=== PATIENT | female | born 1945 | race Caucasian/White ===

== ENCOUNTER 2016-10-13 16:47 | Observation (INO) | payer MEDICARE ==
[2016-10-13] MEDS ORDERED: METOPROLOL TARTRATE 50 MG TAB PO ONE (17:07)
--- NOTE | 2016-10-13 17:34 | RAD ---
EXAM DESCRIPTION: Chest,2 Views CLINICAL HISTORY: 71 years Female, palpitations COMPARISON: December TECHNIQUE: PA/lateral] FINDINGS: A pacemaker with atrial and ventricular leads is seen in place. The heart is at the upper limits of normal in size. Lungs are free of acute infiltrate or evidence of effusion. IMPRESSION: I see no acute cardiopulmonary pathology or significant interval change. Electronically signed by: Dwight Calloway MD 10/13/2016 5:33 PM [employer]
--- NOTE | 2016-10-13 18:43 | ED.PDOC ---
History of Present Illness - General Chief Complaint: Cardiovascular Problem Stated Complaint: fast heart rate Time Seen by Provider: 10/13/16 17:05 Source: patient Exam Limitations: no limitations - History of Present Illness Initial Comments: the patient is a 71-year-old female presenting to the emergency room secondary to a feeling of palpitations in her chest that started less than an hour prior to arrival. She had actually gone to get her pacemaker interrogated today and it was apparently doing what he was supposed to be doing. She had been taken off of a long-acting metoprolol [address] Fulton earlier in the month. The patient has apparently been stable on that medication for quite a few years. She did have a history of atrial fibrillation with rapid ventricular rate but she says that she has been in a normal rhythm for the last few years. She does take liquids daily. She did not have any chest pain with the event but did have some mild shortness of breath. Her heart rate upon arrival here was in the 140s to 150s. She is oxygenating well without any chest pain. Lungs are clear. No respiratory distress. Telemetry monitoring and EKG confirmed atrial flutter with variable conduction. Timing/Duration: 1 hour Severity: moderate Improving Factors: nothing Worsening Factors: nothing Associated Symptoms: shortness of breath - mild Allergies/Adverse Reactions: Allergies Ciprofloxacin [From Cipro] Allergy (Verified 12/27/14 11:55) Home Medications: Ambulatory Orders HYDROcodone 5MG/APAP 325MG [Sharon 5/325] 1 - 2 ea PO Q4H PRN #30 tab 12/29/14 Apixaban [Eliquis] 5 mg PO BID 10/13/16 Lisinopril/Hctz 20-12.5 mg [Zestoretic 20/12.5] 1 ea PO BID 10/13/16 Review of Systems - Review of Systems Constitutional: States: no symptoms reported EENTM: States: no symptoms reported Respiratory: States: short of breath Cardiology: States: palpitations Gastrointestinal/Abdominal: States: no symptoms reported Genitourinary: States: no symptoms reported Musculoskeletal: States: no symptoms reported Skin: States: no symptoms reported Neurological: States: no symptoms reported Endocrine: States: no symptoms reported All other Systems: No Change from Baseline Past Medical History (General) - Patient Medical History Hx Cardiac Disorders: Yes - Atrial fib Hx Congestive Heart Failure: No Hx Pacemaker: Yes Hx Hypertension: Yes Hx Diabetes: No Hx Cancer: No Surgical History: pacemaker - Vaccination History Hx Influenza Vaccination: Yes Hx Pneumococcal Vaccination: Yes - Social History Hx Tobacco Use: Yes - quit 2008 Hx Alcohol Use: No - Female History Patient : No Family Medical History - Family History Father Family History: Unknown Living Status: Unknown Grandparents Living Status: Physical Exam - Physical Exam General Appearance: Alert, Comfortable, No apparent distress Eye Exam: bilateral normal Ears, Nose, Throat: normal ENT inspection, normal pharynx Neck: non-tender, full range of motion, supple Respiratory: chest non-tender, lungs clear, normal breath sounds, no respiratory distress, no accessory muscle use Cardiovascular/Chest: normal peripheral pulses, no edema, tachycardia, irregularly irregular Peripheral Pulses: radial,right: 2+, radial,left: 2+, dorsalis pedis,right: 2+, dorsalis pedis,left: 2+, posterior tibialis,right: 2+, posterior tibialis,left: 2+ Gastrointestinal/Abdominal: non tender, soft Rectal Exam: deferred Back Exam: normal inspection, no CVA tenderness Extremity: normal range of motion, non-tender, normal inspection, no pedal edema , normal capillary refill 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 The patient has been restarted on her oral metoprolol and was given 1 dose of IV Cardizem at 10 mg. She was already anticoagulated with liquids. The patient has tolerated the rapid rate remarkably well. Heart rates are now down to the 110s. The patient will be admitted overnight for further monitoring and medication adjustment. If she fails to cardiovert over the next 24 hours then directed cardioversion may be warranted. The patient sees Dr. Fulton as her management sme. laboratory work, EKG, and chest x-ray are reassuring otherwise. - Results/Orders Results/Orders: 10/13/16 17:06 Telemetry .CONTINUOUS atrial flutter with variable conduction UA [URINALYSIS] Stat pending at this time 10/13/16 17:15 EKG STAT atrial flutter with variable conduction at a rate of [address] segment changes concerning for ischemia. 10/14/16 09:00 Oxygen Daily chest x-ray shows no acute pathology. Laboratory Results - last 24 hr 10/13/16 17:10 WBC 7.0 RBC 4.84 Hgb 14.1 Hct 42.7 MCV 88.2 MCH 29.1 MCHC 33.1 RDW 13.9 Plt Count 260 MPV 8.6 Absolute Neuts (auto) 3.90 Absolute Lymphs (auto) 2.20 Absolute Monos (auto) 0.60 Absolute Eos (auto) 0.20 Absolute Basos (auto) 0.10 Neutrophils % 56.4 Lymphocytes % 30.8 Monocytes % 8.9 Eosinophils % 3.2 Basophils % 0.7 PT 11.2 INR 0.990 PTT (SP) 36.2 Sodium 141 Potassium 3.6 Chloride 104 Carbon Dioxide 26 Anion Gap 14.6 BUN 25 H Creatinine 1.09 BUN/Creatinine Ratio 22.9 H Random Glucose 117 H Serum Osmolality 286.7 Calcium 9.1 Magnesium 1.9 Total Bilirubin 0.3 AST 22 ALT 16 Alkaline Phosphatase 110 Creatine Kinase 56 CK-MB (CK-2) 1.8 CK-MB (CK-2) % Not Reportable Troponin I 0.05 B-Natriuretic Peptide 46.1 Serum Total Protein 7.8 Albumin 4.3 Globulin 3.5 Albumin/Globulin Ratio 1.2 TSH 1.90 Departure - Departure Clinical Impression: Atrial flutter with rapid ventricular response Disposition: Admit Patient Home Medications: Ambulatory Orders HYDROcodone 5MG/APAP 325MG [Sharon 5/325] 1 - 2 ea PO Q4H PRN #30 tab 12/29/14 Apixaban [Eliquis] 5 mg PO BID 10/13/16 Lisinopril/Hctz 20-12.5 mg [Zestoretic 20/12.5] 1 ea PO BID 10/13/16 Decision To Admit - Decistion To Admit Decision to Admit Reason: Medical Nature Decision to Admit Date: 10/13/16 Decision to Admit Time: 18:46
[2016-10-13] MEDS ORDERED: ALUMINUM & MAGNESIUM HYDROXIDE 30 ML UD PO ONE (19:05)
--- NOTE | 2016-10-13 19:33 | HP ---
SUPERVISING PHYSICIAN: Bobo Aguillon MD CHIEF COMPLAINT: Palpitations. HISTORY OF PRESENT ILLNESS: This is a 71 year-old female patient who came to the Emergency Room today due to palpitations. She was taken off of her metoprolol about a month ago, although she said she continued to take it for about 10 days after she was told to discontinue it because she was scared her heart would get up again. 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 Today, she actually went to see Dr. Fulton and she had her pacemaker interrogated and there were no changes made. She inquired about being on her medications to keep her heart rate down and her previous medication was not restarted. After she got back home from [employer] she was going in the house and she felt her palpitations in her chest. She has a previous history of palpitations as well as atrial fibrillation and it scared her quite a bit so she came to the Emergency Room. She denied any chest pain at that time but she had some shortness of breath with the accelerated rhythm. She said that when she took her heart rate at home it started out in the 140s and later increased to 160s and that is when she came to the Emergency Room. In the Emergency Room her heart rate was 140s to 150s. She was given some Cardizem as well as a metoprolol tartrate and her CBC was within normal limits. Her cardiac enzymes were negative. Her metabolic panel showed a BUN of 25 and glucose 117, otherwise was within normal limits. Her chest x-ray shows no acute cardiopulmonary pathology and I was called for admission. PAST MEDICAL HISTORY: 1. Corneal abrasion. 2. Atrial fibrillation. 3. Hypertension. 4. Chronic vaginal prolapse. PAST SURGICAL HISTORY: 1. Gallbladder. 2. Appendectomy. 3. Heart ablation. 4. Pacemaker insertion. 5. Hysterectomy. CURRENT MEDICATIONS: 1. Eliquis. 2. Lisinopril/HCTZ. ALLERGIES: CIPROFLOXACIN AND ASPIRIN. FAMILY HISTORY: Positive for lymphoma. SOCIAL HISTORY: She lives at home alone. She is . She stopped smoking in January of 2009. She denies any ETOH or illicit drug use. REVIEW OF SYSTEMS: GENERAL: She denies any fever, chills, fatigue or weight loss. HEENT: Denies sinus symptoms, ear pain, vision changes or sore throat. RESPIRATORY: Complains of shortness of breath with the tachyarrhythmia but presently denies any shortness of breath, wheezing or coughing. CARDIOVASCULAR: As per history of present illness. ABDOMEN: Complains of some slightly nausea but otherwise denies any vomiting, constipation, diarrhea or abdominal pain. EXTREMITIES: Denies any edema. NEUROLOGICAL: Denies any weakness, dizziness or seizures. PHYSICAL EXAMINATION: VITAL SIGNS: She is afebrile. Heart rate 90, blood pressure 140/90, respiratory rate 20. O2 saturation 96% on room air. GENERAL: This is a 71 year-old female patient who is lying in her hospital bed. She is in no acute distress. HEENT: Normocephalic and atraumatic. Pupils are equal and reactive. NECK: Supple without mass. CHEST: Clear to auscultation bilaterally. CARDIOVASCULAR: Regular rate, slightly irregular rhythm. 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 ABDOMEN: Soft, nondisplaced, non-tender. Bowel sounds are positive. EXTREMITIES: No cyanosis, clubbing, or edema. NEUROLOGIC: She is awake, alert, and oriented x3. Her lab and film studies are as per the history of present illness. ASSESSMENT: 1. Atrial fibrillation with rapid ventricular response given Cardizem in the Emergency Room and has now converted to a sinus rhythm with PACs. 2. History of atrial fibrillation with a previous ablation and a pacemaker. 3. Hypertension. PLAN: We will monitor the patient closely overnight. I have given her one dose of Cardizem p.o. 30 mg tonight. In the morning, I will contact Dr. Fulton and see if he would like to put her on a beta sadi or a calcium channel sadi and have a recommended followup from him. She is on Eliquis so she is covered adequately for DVT. I have restarted her home medications, hopefully she can be discharged tomorrow with close followup and we will give her some medications for her arrhythmias. Otherwise, we will monitor her closely overnight and followup as needed. Dr. Aguillon is the collaborating physician available for consultation. #[id number] [facility] CENTERShefali
[2016-10-13] MEDS ORDERED: ACETAMINOPHEN 325 MG TAB PO PRN (21:22)
[2016-10-13] MEDS ORDERED: SODIUM CHLORIDE 0.9% (FLUSH) 10 ML SYG IV PRN (21:22)
[2016-10-13] MEDS ORDERED: NON-FORMULARY MEDICATION 1 EA MIS (Apixaban [Eliquis] 5 MG) PO SCH (21:30)
[2016-10-13] MEDS ORDERED: IV SET AND CAP CHANGE INJ INJ SCH (21:30)
[2016-10-13] MEDS ORDERED: APIXABAN 2.5 MG TAB PO ONE (21:49)
[2016-10-13] MEDS ORDERED: diltiaZEM HCL TAB 30 MG TAB PO ONE (23:36)
[2016-10-14] MEDS ORDERED: APIXABAN 2.5 MG TAB PO ONE (05:36)
[2016-10-14] MEDS ORDERED: SODIUM CHLORIDE 0.9% 10 ML VIAL IV PRN (07:37)
[2016-10-14] MEDS ORDERED: APIXABAN 2.5 MG TAB PO SCH (09:00)
[2016-10-14] MEDS ORDERED: [UNRECOGNIZED DRUG - OTHER] PO SCH (09:00)
[2016-10-14] MEDS ORDERED: LISINOPRIL 10 MG TAB PO SCH (09:00)
[2016-10-14] MEDS ORDERED: SODIUM CHLORIDE 0.9% (FLUSH) 10 ML SYG IV SCH (09:00)
[2016-10-14] MEDS ORDERED: hydroCHLOROthiazide 25 MG TAB PO SCH (09:00)
[2016-10-14] MEDS ORDERED: METOPROLOL TARTRATE 50 MG TAB PO ONE (09:00)
[2016-10-14] MEDS ORDERED: LISINOPRIL PO SCH (09:00)
[2016-10-14] MEDS ORDERED: HCTZ PO SCH (09:00)
[2016-10-14] MEDS ORDERED: SUCCINYLCHOLINE CHLORIDE 200 MG/10 ML VIAL ONE (11:43)
[2016-10-14] MEDS ORDERED: SODIUM CHLORIDE 0.9% 1000ML 1,000 ML ONE (13:21)
[2016-10-14] MEDS ORDERED: SODIUM CHLORIDE 0.9% 1000ML 1,000 ML IVS PRN (13:23)
--- NOTE | 2016-10-14 13:35 | PN ---
SUPERVISING PHYSICIAN: Sharron Aguillon MD DATE: 10/14/16 SUBJECTIVE: The patient is walking in the hallways. She did have one incident of accelerated heart rate with some mild shortness of breath. She had gotten up to go to the bathroom, but other than that, she still feels some weak, but denies any chest pain, nausea, vomiting, diarrhea, or constipation. I discussed with her that we will most likely do a synchronized cardioversion with as I discussed with Dr. Fulton and she has agreed to that. She says she has had it done four times previously and has always felt better after she had it done. OBJECTIVE: VITAL SIGNS: Afebrile. Pulse 70s to 80s. It has gotten up as high as the 130s earlier today, but overnight it has remained in the 70s and 80s. Blood pressure 123/78. Respiratory rate 18. O2 saturation 96% on room air. LUNGS: Clear to auscultation bilaterally. CARDIAC: Regular rate and slightly irregular rhythm. ABDOMEN: Soft, nontender, nondistended. Bowel sounds are positive. EXTREMITIES: No cyanosis, clubbing or edema. NEUROLOGIC: Awake, alert and oriented times three. LABORATORY: CBC is basically within normal limits. BMP shows sodium 138, potassium 4, chloride 101, carbon dioxide 29, BUN 22, creatinine 1.02. All other labs and films have been reviewed via the EMR. ASSESSMENT: 1. Atrial fibrillation with rapid ventricular response given Cardizem in the Emergency Room and has converted to a sinus rhythm with PACs alternating with atrial flutter overnight and having one episode of accelerated heart rate in the 130s this morning, presently in alternating sinus rhythm with premature atrial contractions and atrial flutter per the hospital monitor. 2. History of atrial fibrillation with a previous ablation and a pacemaker insertion. 3. Hypertension. PLAN: I spoke with Dr. Fulton at length this morning. He has recommended that we do a synchronized cardioversion on her today. Per his instructions, we will give her 10 mg of Etomidate and synchronize cardiovert her at 70 joules. He also recommended that she be placed on verapamil ER 120 mg daily to be started tomorrow. I will send him an EKG after we complete the cardioversion. We will plan to watch her overnight and if she has a successful cardioversion and no dysrhythmias, we will discharge her tomorrow with close followup with Dr. Nixon and Dr. Fulton. Dr. Aguillon is the collaborating physician and available for consultation. #[id number] [facility]
[2016-10-14] MEDS ORDERED: ETOMIDATE INJECTION 2 MG/ML 20ML VIAL IV ONE ×2 (13:57→14:00)
[2016-10-14] MEDS ORDERED: VERAPAMIL ER 120 MG TAB PO SCH (15:30)
[2016-10-14 17:44] VITALS: BP 121/79; TEMP 98.4; O2SAT 98
--- NOTE | 2016-10-19 08:30 | OP ---
SUPERVISING PHYSICIAN: Sharron Aguillon MD DATE OF PROCEDURE: 10/14/16 PROCEDURE: Synchronized cardioversion. REASON FOR PROCEDURE: Atrial fibrillation. PROCEDURE: The procedure was explained to the patient with risks and benefits including risk of stroke. The patient understands the procedure. The patient has received synchronized cardioversion in the past with success. The patient has been on anticoagulation with Eliquis for well over one year. She received 10 mg of etomidate. The pads were applied to the anterior and posterior chest with synchronized biphasic waveform at 70 joules. One shock was successful in restoring sinus rhythm. The patient converted to normal sinus rhythm and the patient had no immediate postprocedure complications. The rhythm was maintained and 12-lead EKG was requested. Dr. Nixon, the patient's primary care physician, as well as the supervising physician, Sharron Aguillon MD, were present during the procedure. IMPRESSION: Successful synchronized cardioversion with islam of sinus rhythm from atrial fibrillation and atrial flutter with no immediate complications. Dr. Aguillon is the collaborating physician and available for consultation. #[id number] [facility]
--- NOTE | 2016-10-19 08:44 | DS ---
SUPERVISING PHYSICIAN: Sharron Aguillon MD DISCHARGE DIAGNOSIS: 1. Atrial fibrillation with rapid ventricular response, given Cardizem in the Emergency Room and has converted to a sinus rhythm with PACs alternating with atrial flutter overnight and having one episode of accelerated heart rate in the 130s this morning, presently in alternating sinus rhythm with premature atrial contractions and atrial flutter per the technology architect. 2. Status post cardioversion that restored her rhythm to normal sinus rhythm. 3. History of atrial fibrillation with a previous ablation and a pacemaker insertion. 4. Hypertension. HISTORY OF PRESENT ILLNESS: This is a 71-year-old female patient who presented to the Emergency Room due to palpitations. She had been taken off her metoprolol about a month ago although she continued to take it for ten days after she was told to discontinue it because she was scared her heart would have an accelerated rhythm again. Dr. Fulton is her supervisor production managing and on the day of admission, she had gone to see him to have her pacemaker interrogated and no changes were made. When she returned home, she felt palpitations in her chest and got some shortness of breath, so she came to the Emergency Room. She denied any chest pain at that time, but she continued with shortness of breath. Her heart rate at home went up as high as the 160s and it was in the 140s to 150s in the Emergency Room. Her cardiac enzymes were negative and she was given some Cardizem as well as metoprolol. Her heart rate came down to the low 100s, but she continued to alternate between rhythm with PACs and atrial flutter. HOSPITAL COURSE: The patient was admitted to the hospital for observation. Her cardiac enzymes continued to be negative. She was started on metoprolol by mouth. Her heart rate came down to the 90s, but she continued to have atrial flutter that alternated with sinus rhythm with PACs. I spoke with Dr. Fulton, her supervisor production managing, and he recommended that she be cardioverted at 70 joules after being sedated and put back on her metoprolol. The patient complained that metoprolol had given her diarrhea, so he suggested we put her on a low dose of verapamil. We discussed cardioversion with the patient and she has been cardioverted four previous times, so she was very willing to go through cardioversion. She was cardioverted using 70 joules and was restored to normal sinus rhythm after one shock. She tolerated the procedure well. Her EKG was sent to Dr. Fulton and she has remained in sinus rhythm since that time. Per suggestion of Dr. Fulton, she can be discharged home today. DISCHARGE PLAN: The patient will be discharged home in stable condition. She is to resume her previous diet. I have given her verapamil ER 120 mg to be taken daily. She has a followup appointment with Dr. Nixon on 10/20/16. Per Dr. Fulton's instructions, she is to followup with him as previously scheduled. She is to return to the hospital for any further complications or problems. DISCHARGE MEDICATIONS: 1. Hydrocodone. 2. Eliquis. 3. Lisinopril/HCTZ. 4. Verapamil HCL ER. Dr. Aguillon is the collaborating physician and available for consultation. #[id number] [facility]
== END 2016-10-14 18:50 | disposition home or self-care (01) ==
LOC: ER 16:47 → MS 19:32
PROVIDERS: ADMIT Nurse Practitioner Acute Care; ATTEND Nurse Practitioner Acute Care
DX: I48.91 Unspecified atrial fibrillation (principal); I10 Essential (primary) hypertension; R06.02 Shortness of breath; Z95.0 Presence of cardiac pacemaker; Z79.01 Long term (current) use of anticoagulants; Z79.899 Other long term (current) drug therapy; Z90.49 Acquired absence of other specified parts of digestive tract; Z90.710 Acquired absence of both cervix and uterus; Z88.1 Allergy status to other antibiotic agents; Z88.6 Allergy status to analgesic agent; Z87.891 Personal history of nicotine dependence; Z60.2 Problems related to living alone; Z80.7 Family history of other malignant neoplasms of lymphoid, hematopoietic and related tissues
CPT/HCPCS: 36415; 71020; 80048; 80053; 81001; 82550; 82553; 83735; 83880; 84443; 84484; 85025 ×2; 85610; 85730; 93005 ×2; 94762; 94770; 96374; 96375; 99284; J7030

== ENCOUNTER 2016-10-16 09:41 | Emergency (ER) | payer MEDICARE ==
[2016-10-16 09:58] VITALS: TEMP 97.6
[2016-10-16] MEDS ORDERED: SODIUM CHLORIDE 0.9% 1000ML 750 ML IVS ONE (10:54)
--- NOTE | 2016-10-16 11:00 | ED.PDOC ---
History of Present Illness - General Chief Complaint: Cardiovascular Problem Stated Complaint: heart palpitations Time Seen by Provider: 10/16/16 09:47 Source: patient Exam Limitations: no limitations - History of Present Illness Initial Comments: the patient is a 71-year-old female presenting to the emergency room secondary to symptoms of palpitations as well as some generalized weakness and fatigue along with corresponding anxiety. The patient was admitted to the hospital here just a few days ago secondary to atrial flutter with RVR. She was electively cardioverted and placed on verapamil. The patient took a long road trip that she got out of the hospital. When she went back to her house yesterday she felt some palpitations and felt weak and dizzy. She showed up this morning still feeling somewhat weak and dizzy but not having any current palpitations. She's had no syncope or near syncope. No falls. No chest pain. She does reporta decreased oral intake of liquids over the past few days. The patient was started on verapamil 120 mg long-acting once daily. She has continued to take her lisinopril hydrochlorothiazide twice daily. She is also taking eliquis. No fevers chills or productive cough. Mild shortness of breath with exertion. No difficulty with breathing when lying back on being still. She does have a little dizziness with standing up and moving around. Timing/Duration: unsure Severity: mild Improving Factors: rest Worsening Factors: movement Associated Symptoms: malaise, weakness Allergies/Adverse Reactions: Allergies Ciprofloxacin [From Cipro] Adverse Reaction (Verified 10/16/16 09:58) Diarrhea Home Medications: Ambulatory Orders HYDROcodone 5MG/APAP 325MG [Ellerbe 5/325] 1 - 2 ea PO Q4H PRN #30 tab 12/29/14 Apixaban [Eliquis] 5 mg PO BID 10/13/16 Lisinopril/Hctz 20-12.5 mg [Zestoretic 20-12.5 mg] 1 ea PO BID 10/13/16 Verapamil HCl ER [Isoptin Sr] 120 mg PO DAILY #30 tab 10/14/16 Review of Systems - Review of Systems Constitutional: States: malaise, weakness - mild generalized EENTM: States: no symptoms reported Respiratory: States: short of breath - mainly with exertion Cardiology: States: palpitations Gastrointestinal/Abdominal: States: no symptoms reported Genitourinary: States: no symptoms reported Musculoskeletal: States: no symptoms reported Skin: States: no symptoms reported Neurological: States: anxiety Endocrine: States: increased thirst Hematologic/Lymphatic: States: no symptoms reported All other Systems: No Change from Baseline Past Medical History (General) - Patient Medical History Hx Seizures: No Hx Stroke: No Hx Asthma: No Hx of COPD: No Hx Cardiac Disorders: Yes - A fib Hx Congestive Heart Failure: No Hx Pacemaker: Yes Hx Hypertension: Yes Hx Diabetes: No Hx Cancer: No Hx MRSA: No Surgical History: appendectomy, Hysterectomy - Vaccination History Hx Influenza Vaccination: Yes Hx Pneumococcal Vaccination: Yes - Social History Hx Tobacco Use: No Hx Alcohol Use: No Hx Substance Use: No Hx Physical Abuse: No Hx Emotional Abuse: No - Female History Patient : No Family Medical History - Family History Father Family History: Unknown Living Status: Unknown Grandparents Family History: Unknown Living Status: Physical Exam - Physical Exam General Appearance: Alert, Anxious, No apparent distress Eye Exam: bilateral normal Ears, Nose, Throat: normal ENT inspection, normal pharynx Neck: non-tender, full range of motion, supple, normal inspection Respiratory: chest non-tender, lungs clear, normal breath sounds, no respiratory distress, no accessory muscle use Cardiovascular/Chest: normal peripheral pulses, regular rate, rhythm, no edema Peripheral Pulses: radial,right: 2+, radial,left: 2+, dorsalis pedis,right: 2+, dorsalis pedis,left: 2+ Gastrointestinal/Abdominal: normal bowel sounds, non tender, soft Rectal Exam: deferred Back Exam: normal inspection, no CVA tenderness, no vertebral tenderness Extremity: normal range of motion, non-tender, normal inspection, no pedal edema , normal capillary refill 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 The patient was recently cardioverted from atrial flutter back to a paced rhythm. She has recently started verapamil due to that event and I believe she has been having some mild hypotensive episodes with that medication. We are going to reduce her lisinopril hydrochlorothiazide dose back to 1 dose daily rather than 1 dose twice a day. She is also dehydrated likely due to the hydrochlorothiazide in combination with a decreased oral intake over the last few days. This is likely also contributing to a relatively low blood pressure and her fatigue. She was given a small IV fluid bolus here today. She does have some mild acute renal failure related to dehydration which does need to be followed. 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 She will continue the verapamil at current dosage. ER warnings are given for any acute worsening. Telemetry monitoring here today has shown no evidence of any clinically significant arrhythmia. - Results/Orders Results/Orders: Laboratory Tests 10/16/16 09:56 WBC 5.6 RBC 4.88 Hgb 14.2 Hct 42.7 MCV 87.5 MCH 29.0 MCHC 33.2 RDW 14.1 Plt Count 270 MPV 8.3 Absolute Neuts (auto) 3.40 Absolute Lymphs (auto) 1.60 Absolute Monos (auto) 0.40 Absolute Eos (auto) 0.20 Absolute Basos (auto) 0.00 Neutrophils % 60.6 Lymphocytes % 27.9 Monocytes % 7.9 Eosinophils % 2.8 Basophils % 0.8 PT 16.3 H D INR 1.450 PTT (SP) 40.6 H Sodium 140 Potassium 3.8 Chloride 102 Carbon Dioxide 27 Anion Gap 14.8 BUN 31 H D Creatinine 1.42 H D BUN/Creatinine Ratio 21.8 H Random Glucose 92 Serum Osmolality 285.6 Calcium 9.8 Magnesium 2.0 Total Bilirubin 0.5 AST 24 ALT 19 Alkaline Phosphatase 110 Creatine Kinase 47 CK-MB (CK-2) 1.6 CK-MB (CK-2) % Not Reportable Troponin I 0.05 B-Natriuretic Peptide 28.9 Serum Total Protein 8.7 H Albumin 4.5 Globulin 4.2 H Albumin/Globulin Ratio 1.1 EKG shows a paced atrial rhythm. No acute ST segment changes concerning for ischemia. No axis. Regular rate. Departure - Departure Clinical Impression: Hypotension, iatrogenic, Dehydration, Anxiety about health Acute renal failure Qualifiers: Acute renal failure type: unspecified Qualifier Code: (N17.9) Acute kidney failure, unspecified Disposition: Discharge to Home or Self Care Condition: Fair Departure Forms: ED Discharge - Pt. Copy, Patient Portal Self Enrollment Instructions: DI for Orthostatic Hypotension, DI for Dehydration -- Adult Diet: regular diet Activity: increase activity as tolerated Referrals: Cesar Nixon MD [Primary Care Provider] - 1-2 Weeks Home Medications: Ambulatory Orders HYDROcodone 5MG/APAP 325MG [Ellerbe 5/325] 1 - 2 ea PO Q4H PRN #30 tab 12/29/14 Apixaban [Eliquis] 5 mg PO BID 10/13/16 Lisinopril/Hctz 20-12.5 mg [Zestoretic 20-12.5 mg] 1 ea PO BID 10/13/16 Verapamil HCl ER [Isoptin Sr] 120 mg PO DAILY #30 tab 10/14/16 Additional Instructions: the patient is a 71-year-old female presenting to the emergency room secondary to symptoms of weakness, shortness of breath and mild palpitations with corresponding anxiety. The patient was recently cardioverted from atrial flutter back to a paced rhythm. She has recently started verapamil due to that event and I believe she has been having some mild hypotensive episodes with that medication. We are going to reduce her lisinopril hydrochlorothiazide dose back to 1 dose daily rather than 1 dose twice a day. She is also dehydrated likely due to the hydrochlorothiazide in combination with a decreased oral intake over the last few days. This is likely also contributing to a relatively low blood pressure and her fatigue. She was given a small IV fluid bolus here today. She does have some mild acute renal failure related to dehydration which does need to be followed. 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 She will continue the verapamil at current dosage. ER warnings are given for any acute worsening. Telemetry monitoring here today has shown no evidence of any clinically significant arrhythmia.
[2016-10-16 12:12] VITALS: BP 124/70; O2SAT 98
== END 2016-10-16 12:00 | disposition home or self-care (01) ==
LOC: ER 09:41
DX: I95.89 Other hypotension (principal); E86.0 Dehydration; F41.9 Anxiety disorder, unspecified; I48.91 Unspecified atrial fibrillation; N17.9 Acute kidney failure, unspecified; I10 Essential (primary) hypertension; Z88.3 Allergy status to other anti-infective agents; Z79.899 Other long term (current) drug therapy
CPT/HCPCS: 36415; 80053; 82550; 82553; 83735; 83880; 84484; 85025; 85610; 85730; 93005; J7030

== ENCOUNTER 2016-12-07 06:47 | Emergency (ER) | payer MEDICARE ==
[2016-12-07] MEDS ORDERED: ASPIRIN TABLET 325 MG TAB PO ONE (07:31)
--- NOTE | 2016-12-07 07:39 | ED.PDOC ---
History of Present Illness - General Chief Complaint: Cardiovascular Problem Stated Complaint: heart palpatations Time Seen by Provider: 12/07/16 06:49 Source: patient Exam Limitations: no limitations - History of Present Illness Initial Comments: Ms. Renetta Barbour 71 y/o female with history of a.fib/flutter stated that this morning felt heart is racing and pounding several hours after waking this morning.Denies chest pain,shortness of breath,dizziness. Timing/Duration: 1-3 hours Severity: moderate Activities at Onset: rest Prior Chest Pain/Cardiac Workup: cardiac cath, stress test Improving Factors: nothing Worsening Factors: nothing Nitro Today/Relief: no nitro taken today Aspirin Treatment Today: no aspirin today Associated Symptoms: denies symptoms Allergies/Adverse Reactions: Allergies Moxifloxacin [From Avelox] Allergy (Verified 12/07/16 11:06) Naproxen [From Aleve] Allergy (Verified 12/07/16 11:06) Sulfamethoxazole w/Trimethoprim [From Bactrim] Allergy (Verified 12/07/16 11:06) Ciprofloxacin [From Cipro] Adverse Reaction (Verified 12/07/16 07:01) Diarrhea Home Medications: Ambulatory Orders HYDROcodone 5MG/APAP 325MG [[place] 5/325] 1 - 2 ea PO Q4H PRN #30 tab 12/29/14 Apixaban [Eliquis] 5 mg PO BID 10/13/16 Lisinopril/Hctz 20-12.5 mg [Zestoretic 20-12.5 mg] 1 ea PO BID 10/13/16 Verapamil HCl ER [Isoptin Sr] 120 mg PO DAILY #30 tab 10/14/16 Dorzolamide-Timolol Opth [Cosopt Opthalmic Drops] 1 betina OP BID 12/07/16 Travoprost [Travatan Z] 0.004 % OP BEDTIME 12/07/16 Verapamil HCl ER [Isoptin Sr] 180 mg PO DAILY #30 tab 12/07/16 Review of Systems - Review of Systems Constitutional: States: no symptoms reported EENTM: States: no symptoms reported Respiratory: States: no symptoms reported Cardiology: States: see HPI Gastrointestinal/Abdominal: States: no symptoms reported Genitourinary: States: no symptoms reported Musculoskeletal: States: no symptoms reported Skin: States: no symptoms reported Neurological: States: no symptoms reported Endocrine: States: no symptoms reported Hematologic/Lymphatic: States: no symptoms reported Past Medical History (General) - Patient Medical History Hx Seizures: No Hx Stroke: No Hx Dementia: No Hx Asthma: No Hx of COPD: No Hx Cardiac Disorders: Yes Hx Congestive Heart Failure: No Hx Pacemaker: No Hx Hypertension: Yes Hx Thyroid Disease: No Hx Diabetes: No Hx Gastroesophageal Reflux: No Hx Renal Disease: No Hx Cancer: No Hx of HIV: No Hx Hepatitis C: No Hx MRSA: No Hx Other PMH: No - glaucoma Surgical History: appendectomy, cholecystectomy, other - pacemaker,hysterectomy - Vaccination History Hx Tetanus, Diphtheria Vaccination: Yes Hx Influenza Vaccination: Yes Hx Pneumococcal Vaccination: Yes Immunizations Up to Date: Yes - Social History Hx Tobacco Use: No Hx Chewing Tobacco Use: No Hx Alcohol Use: No Hx Substance Use: No Hx Substance Use Treatment: No Hx Depression: No Feels Threatened In Home Enviroment: No Feels Threatened In a Relationship: No Hx Physical Abuse: No Hx Emotional Abuse: No Hx Suspected Abuse: No - Female History Patient : No Family Medical History - Family History Father Family History: Unknown Living Status: Hx Family Stroke: Yes - dad Hx Cardiac Disease: Yes - dad Hx Family Cancer: Yes - sister-colon;dad-non hodgkins lymphoma Grandparents Family History: Unknown Living Status: Hx Family Hypertension: Yes - mom Physical Exam - Physical Exam General Appearance: Alert, No apparent distress Eyes, Ears, Nose, Throat Exam: PERRL/EOMI, normal ENT inspection, TMs normal, pharynx normal Neck: non-tender, full range of motion, supple, normal inspection Respiratory: chest non-tender, lungs clear, normal breath sounds, no respiratory distress Cardiovascular/Chest: no gallop, no murmur, tachycardia, irregularly irregular Gastrointestinal/Abdominal: normal bowel sounds, non tender, soft, no organomegaly, no pulsatile mass Extremity: normal range of motion, non-tender, normal inspection, no pedal edema Neurologic: no motor/sensory deficits, alert, normal mood/affect, oriented x 3 Skin Exam: normal color, warm/dry Lymphatic: no adenopathy Progress - Results/Orders Results/Orders: 12/07/16 07:31 Telemetry .ONCE EKG Stat Pulse Ox Stat 12/07/16 07:32 EKG Assessment ONCE Pulse Oximetry Assessment DAILY 12/07/16 07:53 TSH [THYROID STIMULATING HORMONE] Stat 12/07/16 07:54 PROTHROMBIN TIME Stat PTT [PARTIAL THROMBOPLASTIN TIME] Stat Laboratory Results WBC 6.5 K/mm3 (4.8-10.8) 12/07/16 07:31 RBC 4.45 M/mm3 (4.20-5.40) 12/07/16 07:31 Hgb 12.9 gm/dL (12.0-16.0) 12/07/16 07:31 Hct 39.4 % (36.0-47.0) 12/07/16 07:31 MCV 88.5 fl (81.0-99.0) 12/07/16 07:31 MCH 28.9 pg (27.0-31.0) 12/07/16 07: MCHC 32.8 g/dL (33.0-37.0) L 12/07/16 07:31 RDW 14.4 % (11.5-14.5) 12/07/16 07:31 Plt Count 235 K/mm3 (130-400) 12/07/16 07:31 MPV 9.2 fl (7.40-10.4) 12/07/16 07:31 Absolute Neuts (auto) 3.10 K/uL (1.8-6.8) 12/07/16 07:31 Absolute Lymphs (auto) 2.50 K/uL (1.0-3.4) 12/07/16 07:31 Absolute Monos (auto) 0.60 K/uL (0.2-0.8) 12/07/16 07:31 Absolute Eos (auto) 0.20 K/uL (0.0-0.4) 12/07/16 07:31 Absolute Basos (auto) 0.10 K/uL (0.0-0.1) 12/07/16 07:31 Neutrophils % 48.5 % (42.0-78.0) 12/07/16 07:31 Lymphocytes % 39.4 % (20.0-50.0) 12/07/16 07:31 Monocytes % 8.8 % (2.0-9.0) 12/07/16 07:31 Eosinophils % 2.4 % (1.0-5.0) 12/07/16 07:31 Basophils % 0.9 % (0.0-2.0) 12/07/16 07:31 PT 12.5 SECONDS (9.4-12.5) 12/07/16 07:31 INR 1.110 12/07/16 07:31 PTT (SP) 36.3 SECONDS (25.1-36.5) 12/07/16 07:31 Sodium 135 mmol/L (135-145) 12/07/16 07:31 Potassium 4.1 mmol/L (3.6-5.0) 12/07/16 07:31 Chloride 101 mmol/L (101-111) 12/07/16 07:31 Carbon Dioxide 24 mmol/L (21-31) 12/07/16 07:31 Anion Gap 14.1 (12-18) 12/07/16 07:31 BUN 32 mg/dL (7-18) H 12/07/16 07:31 Creatinine 1.23 mg/dL (0.6-1.3) 12/07/16 07:31 BUN/Creatinine Ratio 26.0 (10-20) H 12/07/16 07:31 Random Glucose 104 mg/dL (70-105) 12/07/16 07:31 Serum Osmolality 277.3 mOsm/L (275-295) 12/07/16 07:31 Calcium 9.4 mg/dL (8.4-10.2) 12/07/16 07:31 Magnesium 2.0 mg/dL (1.8-2.5) 12/07/16 07:31 Creatine Kinase 58 IU/L (26-140) 12/07/16 07:31 CK-MB (CK-2) 1.8 ng/mL (0.0-4.4) 12/07/16 07:31 CK-MB (CK-2) % Not Reportable 12/07/16 07:31 Troponin I 0.04 ng/mL (0.01-0.05) 12/07/16 07:31 B-Natriuretic Peptide 95.9 pg/ml (0-100) 12/07/16 07:31 04 07:03 Temperature 98.1 F Pulse Rate [ 85 monitor] Respiratory 16 Rate Blood Pressure 148/77 [Left Arm] O2 Sat by Pulse 98 Oximetry Discuss all test result to patient.She was given Cardizem 25 mg iv which controlled ventricular rate 70-85 bpm - EKG/XRAY/CT EKG: Atrial - heart rate 102, Flutter, nonspecific ST T wave Chg XRAY: chest - no acute abnormality Departure - Departure Clinical Impression: Rapid palpitations, Atrial flutter with rapid ventricular response Time of Disposition: 11:19 Disposition: Discharge to Home or Self Care Condition: Fair Departure Forms: ED Discharge - Pt. Copy, Patient Portal Self Enrollment Instructions: DI for Palpitations Referrals: Cesar Nixon MD [Primary Care Provider] - 1-2 Weeks Prescriptions: Verapamil HCl ER [Isoptin Sr] 180 mg PO DAILY #30 tab Home Medications: Ambulatory Orders HYDROcodone 5MG/APAP 325MG [[place] 5/325] 1 - 2 ea PO Q4H PRN #30 tab 12/29/14 Apixaban [Eliquis] 5 mg PO BID 10/13/16 Lisinopril/Hctz 20-12.5 mg [Zestoretic 20-12.5 mg] 1 ea PO BID 10/13/16 Verapamil HCl ER [Isoptin Sr] 120 mg PO DAILY #30 tab 10/14/16 Dorzolamide-Timolol Opth [Cosopt Opthalmic Drops] 1 betina OP BID 12/07/16 Travoprost [Travatan Z] 0.004 % OP BEDTIME 12/07/16 Verapamil HCl ER [Isoptin Sr] 180 mg PO DAILY #30 tab 12/07/16 Additional Instructions: STOP TAKING VERAPAMIL 120 mg.;CALL YOUR SENIOR WEB ARCHITECT IN AM ;RETURN TO EMERGENCY ROOM NEEDED
--- NOTE | 2016-12-07 07:52 | RAD ---
Procedure: XR CHEST 1 VIEW Exam Date: 12/07/2016 Ordering Provider: Zarina Mcdonald MD Clinical Indication: palpitations Comparison: 10/13/2016 Findings: Left subclavian pacer with leads in appropriate position. Cardiac size is magnified by technique. Pulmonary vasculature is normal. Mediastinal contour is normal. Aortic contour is normal. There is no focal lung consolidation. No pleural effusion. There is no pneumothorax. There is no acute bony or soft tissue abnormality. Impression: 1. No acute abnormalities in the chest. Electronically signed by: Charanjit Zamora MD 12/07/2016 7:51 AM CDT
[2016-12-07 10:48] VITALS: TEMP 97.7
[2016-12-07 11:41] VITALS: BP 110/79; O2SAT 94
== END 2016-12-07 11:41 | disposition home or self-care (01) ==
LOC: ER 06:47
DX: I48.92 Unspecified atrial flutter (principal); R00.2 Palpitations; I10 Essential (primary) hypertension; Z88.8 Allergy status to other drugs, medicaments and biological substances; Z88.2 Allergy status to sulfonamides; Z88.3 Allergy status to other anti-infective agents; Z79.899 Other long term (current) drug therapy; Z82.49 Family history of ischemic heart disease and other diseases of the circulatory system

== ENCOUNTER → 2017-06-13 | Outpatient (CLI) | payer MEDICARE | END | disposition home or self-care (01) | LOC: GMAJ 10:51 | PROVIDERS: ATTEND Family Medicine | DX: Z79.899 Other long term (current) drug therapy (principal) ==

== ENCOUNTER → 2018-02-03 | Outpatient (CLI) | payer MEDICARE ==
--- NOTE | 2018-02-03 16:26 | US ---
THYROID ULTRASOUND CLINICAL INFORMATION: . Thyroid nodule. TECHNIQUE: Routine transcutaneous scannin-D and Doppler modes. COMPARISON: None. FINDINGS: Thyroid size: Right 4.9 x 2.0 x 1.7 cm. Left 3.8 x 1.6 x 1.5 cm. Isthmus 2.4 mm thick. Texture: Heterogeneous. Estimated total number of nodules >/=1 cm: 4 Number of spongiform nodules >/=2 cm not described below (TR1): 0 Number of mixed cystic and solid nodules >/=1.5 cm not described below (TR2): 0 Nodule #: 1 Maximum size: 1.8 cm; All dimensions 1.4 x 1.2 cm Location: right; mid Composition: cystic/almost completely cystic (0) Echogenicity: cannot determine (1) Shape: not bvmbpt-cewv-osox (0) Margins: smooth (0) Echogenic foci: peripheral calcifications (2) ACR TI-RADS total points: 3. ACR TI-RADS risk category: TR3 (3 points) ACR TI-RADS recommendation: Follow-up ultrasound in 1 year Nodule #: 2 Maximum size: 1.7 cm; All dimensions 1.6 x 1.0 cm Location: right; lower Composition: solid/almost completely solid (2) Echogenicity: hypoechoic (2) Shape: not ycuvkz-rgog-pogb (0) Margins: smooth (0) Echogenic foci: peripheral calcifications (2) ACR TI-RADS total points: 6. ACR TI-RADS risk category: TR4 (4-6 points) ACR TI-RADS recommendation: Ultrasound-guided fine needle aspiration Nodule #: 3 Maximum size: 1.0 cm; All dimensions 0.7 x 0.5 cm Location: left; lower Composition: solid/almost completely solid (2) Echogenicity: isoechoic (1) Shape: not xpitmm-ozuf-xfpi (0) Margins: smooth (0) Echogenic foci: none (0) ACR TI-RADS total points: 3. ACR TI-RADS risk category: TR3 (3 points) ACR TI-RADS recommendation: No further follow-up Nodule #: 4 Maximum size: 1.1 cm; All dimensions 1.0 x 0.7 cm Location: left; lower Composition: cystic/almost completely cystic (0) Echogenicity: anechoic (0) Shape: not pryfgp-yscl-qiml (0) Margins: smooth (0) Echogenic foci: none (0) ACR TI-RADS total points: 0. ACR TI-RADS risk category: TR1 (0 Points) ACR TI-RADS recommendation: No further follow-up Scanning of the soft tissues around the thyroid gland showed no distinct solid mass or cyst. No large calcifications or parenchymal edema. Overlying skin was unremarkable. No abnormal Doppler vascularity. IMPRESSION: 1. 1.7 cm hypoechoic solid nodule (#2) in the right lower lobe with peripheral calcifications. ACR TI RADS risk category TR 4. Recommend ultrasound-guided fine-needle aspiration and sampling. Please see below.* 2. 1.8 cm, almost completely cystic nodule with indeterminate echogenicity and peripheral calcifications. ACR TI RADS risk category TR 3. Follow-up ultrasound in 1 year is recommended. 3. Smaller nodules (# 3, # 4), left lobe, ACR TI RADS risk category TR 3 and TR 0. No further ultrasound follow-up recommended. 4. Soft tissue in the thyroid is unremarkable. *ACR TI-RADS recommendations: TR5 (>/=7 points) - FNA if >/=1 cm, follow-up if 0.5 - 0.9 cm every year for 5 years TR4 (4-6 points) - FNA if >/=1.5 cm, follow-up if 1 - 1.4 cm in 1, 2, 3 and 5 years TR3 (3 points) - FNA if >/=2.5 cm, follow -up if 1.5 - 2.4 cm in 1, 3 and 5 years TR2 (2 points) and TR1 (0 points) - No FNA or follow-up * ACR TI-RADS recommends that no more than two nodules with the highest ACR TI-RADS total point should be biopsied and no more than four nodules should be followed. Electronically signed by: Mahamed Kaplan MD 02/03/2018 4:25 PM CDT
== END ==
LOC: US 08:49
PROVIDERS: ATTEND Family Medicine
DX: E04.1 Nontoxic single thyroid nodule (principal)

== ENCOUNTER → 2018-08-28 | Outpatient (CLI) | payer MEDICARE | LOC: GMAJ 14:16 | PROVIDERS: ATTEND Family Medicine | DX: I10 Essential (primary) hypertension (principal) ==

== ENCOUNTER → 2018-09-06 | Outpatient (CLI) | payer MEDICARE ==
--- NOTE | 2018-09-08 16:26 | MAM ---
EXAM DESCRIPTION: 3D Screening BILATERAL : Digital Mammography. CLINICAL HISTORY: 73 years Female SCREEN . No complaints. No personal or family history of breast cancer. Childbirth. Postmenopausal. No HRT. Lifetime risk of developing breast cancer (Tyrer-Cuzick model)(%): 4.0. COMPARISON: Baseline study at this facility.. No prior reports available. TECHNIQUE: Bilateral CC and MLO projection full-field images, digital tomosynthesis mammographic technique. Bilateral digital 2-D full-field MLO images. CAD not available for tomosynthesis or 2-D images. FINDINGS: The breast parenchymal density pattern is: Scattered areas of fibroglandular density. No skin thickening or nipple retraction. Electronic device partially obscures the upper left breast and left pectoral muscle on the MLO image. Small microcalcifications bilaterally. Focal asymmetry in the upper outer quadrant of the posterior third of the left breast at the 3:00 position. Not associated with microcalcifications. No new focal, stellate mass or density, focal asymmetry , and no suspicious microcalcifications right breast. IMPRESSION: BI-RADS CATEGORY: 0 - INCOMPLETE- Need additional imaging evaluation. FOLLOW-UP: Recall for additional imaging: Orthogonal digital full-field tomosynthesis of the left breast and targeted left breast ultrasound if indicated by diagnostic images.. Written communication concerning the IMPRESSION and Follow-up, will be mailed to the patient and referring health care provider. Electronically signed by: Mahamed Kaplan MD 09/08/2018 4:25 PM TEACHERS ASSISTANT
== END ==
LOC: MAMMO 11:09
PROVIDERS: ATTEND Family Medicine
DX: Z12.31 Encounter for screening mammogram for malignant neoplasm of breast (principal)

== ENCOUNTER → 2020-06-24 | Outpatient (CLI) | payer MEDICARE | LOC: GMAJ 14:17 | PROVIDERS: ATTEND Family Medicine | DX: R41.9 Unspecified symptoms and signs involving cognitive functions and awareness (principal) ==

== ENCOUNTER → 2020-07-01 | Outpatient (CLI) | payer MEDICARE ==
--- NOTE | 2020-07-02 09:46 | CT ---
CT HEAD WITHOUT IV CONTRAST HISTORY: 75 years Female AMS COMPARISON: None. TECHNIQUE: Serial tomographic images of the brain were obtained without the use of intravenous contrast. This exam was performed according to our departmental dose-optimization program, which includes automated exposure control, adjustment of the mA and/or kV according to patient size and/or use of iterative reconstruction technique. FINDINGS: Extra-axial spaces/ventricular system: Normal for patient age. Herniation: None. Intracranial hemorrhage: None. Cerebral parenchyma: Scattered areas of abnormal low attenuation are present within the supratentorial white matter which are nonspecific but compatible with chronic microvascular ischemia. Mcknight-white matter differentiation maintained. Brainstem: Unremarkable. Cerebellum: Unremarkable. Vascular structures: There are scattered atherosclerotic changes noted. Visualized orbits: Unremarkable. Paranasal sinuses/mastoid air cells: Unremarkable. Calvarium/skull base: Unremarkable. IMPRESSION: Nonspecific foci of hypoattenuation within the supratentorial white matter are compatible with chronic microvascular ischemia. No evidence of an acute intracranial process. Electronically signed by: Raulito Angulo MD 07/02/2020 9:44 AM [facility]
== END ==
LOC: MRI 11:28
PROVIDERS: ATTEND Family Medicine
DX: R41.9 Unspecified symptoms and signs involving cognitive functions and awareness (principal); R90.82 White matter disease, unspecified; F03.90 Unspecified dementia, unspecified severity, without behavioral disturbance, psychotic disturbance, mood disturbance, and anxiety